=== PATIENT | male | born 2000 | race Two or more races ===

== ENCOUNTER 2021-11-11 23:51 | Emergency (ER) | payer MEDICAID ==
[~2021-11-11] VITALS: Ht 190.5 cm; Wt 104.3 kg
[2021-11-12 08:23] VITALS: BP 111/62
== END 2021-11-12 11:32 | disposition home or self-care (01) ==
LOC: ER 23:51
DX: S61.302A Unspecified open wound of right middle finger with damage to nail, initial encounter (principal); W26.8XXA Contact with other sharp object(s), not elsewhere classified, initial encounter; Y93.89 Activity, other specified; Y92.89 Other specified places as the place of occurrence of the external cause; Y99.8 Other external cause status

== ENCOUNTER 2024-09-20 15:11 | Emergency (ER) | payer MEDICAID, OTHER ==
[~2024-09-20] VITALS: Ht 190.5 cm; Wt 95.2 kg
[2024-09-20] MEDS ORDERED: IBUP-1453 PO (16:27)
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
[2024-09-20 16:50] VITALS: BP 112/70; PULSE 84; RESP 16; TEMP 97.9; O2SAT 97
== END 2024-09-20 16:55 | disposition home or self-care (01) ==
LOC: ER 15:11
DX: S29.012A Strain of muscle and tendon of back wall of thorax, initial encounter (principal); V49.40XA Driver injured in collision with unspecified motor vehicles in traffic accident, initial encounter; Y93.I9 Activity, other involving external motion; Y92.488 Other paved roadways as the place of occurrence of the external cause; Y99.8 Other external cause status